=== PATIENT | male | born 1970 | race Caucasian/White ===

== ENCOUNTER → 2024-02-15 09:05 | Outpatient (REF) | payer BC, SELFPAY | LOC: RAD 09:05 | PROVIDERS: ATTENDING PHYSICIAN Family Medicine | DX: E78.2 Mixed hyperlipidemia (principal) | CPT/HCPCS: 75571 ==

== ENCOUNTER 2024-08-07 17:30 | Emergency (ER) | payer BC, SELFPAY ==
[2024-08-07 17:33] VITALS: BP 138/101
--- NOTE | 2024-08-07 17:33 | ED.GENMED ---
ED Provider Triage
-
Patient seen by provider in Triage?: Seen in Triage
Attestation: A medical screening examination has been initiated by a qualified medical provider. Based on the assessment performed at this time, it has been determined that an emergent medical condition may exist and the patient has been informed
that further medical evaluation and possible additional diagnostic testing may be needed.
HPI: 54-year-old male states a tree had fallen on the fence, he was cutting it up half hour ago when a piece of the branch flew up and struck him in the right side of his face. It struck him hard enough that he fell backwards onto the ground was
stunned but no significant loss of consciousness. He drove to his neighbors who brought him in here.
Right now feels nauseous and dizzy. Has not vomited.Denies neck pain, back pain.
Small laceration inner upper right lip, abrasion right upper lip/cheek
GENERAL: Alert , in no apparent distress
EYE: No visual abnormalities.
NECK: Trachea midline
ENT: No visible abnormalities.
LUNGS: No acute respiratory distress
NEUROLOGICAL: Alert and oriented
SKIN: Skin intact. No visible changes.
MUSCULOSKELETAL: Moving extremities normally
PSYCH: Normal and appropriate interaction.
This is a medical evaluation conducted in person to initiate diagnostic evaluation and provide initial therapeutics. Please see further documentation by the treating clinician.
History of Present Illness
General
Chief Complaint: Head Injury
Source: patient
Exam Limitations: none
Nursing documentation reviewed up to this point in time: agreed with
History of Present Illness
History of Present Illness:
54-year-old male hx Triumec for HIV (nondetectable) and HLD states a tree had fallen on the fence, he was cutting it up half hour ago when a piece of the branch flew up and struck him in the right side of his face. It struck him hard enough that
he fell backwards onto the ground was stunned but no significant loss of consciousness. He drove to his neighbors who brought him in here.
Right now feels nauseous and dizzy. Has not vomited.Denies neck pain, back pain.
Small laceration inner upper right lip, abrasion right upper lip/cheek
Past History
Past History
ED Past Medical History: Hypercholesterolemia and Other (HIV +, undetectable HIV viral load since 1999, stable CD4 count)
ED Past Surgical History: Appendectomy and Other (Hernia repair)
Social History
Tobacco: Former smoker (Quit November 2014)
Alcohol: Former
Drug: None and Other (Recovering Drug addiction)
Personal: Partner
Living: with family
Employment: Retired
Family History
Family History: Hypertension; Negative Early CAD, CAD or Sudden
Review of Systems
Review of Systems
Allergies reviewed?: Yes
All Other Systems: ROS reviewed and negative except as documented in HPI and ROS
EENT: Reports other (denies pain or looseness of teeth. Cut inner upper lip)
Respiratory: Denies trouble breathing
Cardiac: Denies chest pain or syncope
ABD/GI: Denies abdominal pain, nausea or vomiting
Musculoskeletal: Denies neck pain or back pain
Skin: Reports other (scrape face, cut inner upper right lip)
Neurological: Reports no symptoms
Phy Exam
Physical Exam
Physical Exam:
GENERAL: No acute distress. A&Ox3.
CONSTITUTIONAL: Afebrile.
EYES: PERRL, conjunctivae normal
Neck: Supple
ENMT: moist mucus membranes, Pharynx nl, 5 mm laceration right inner upper lip, no active bleeding, teeth intact, full ROM of jaw
RESPIRATORY: Regular respirations, nonlabored, lungs clear.
CARDIOVASCULAR: Regular rate and rhythm, no murmurs, no rubs.
GI: Soft, nontender
MUSCULOSKELETAL: No spinal bony tenderness. Moves with ease. Well perfused.
SKIN: Warm, dry, pink, superficial clean abrasion right upper lip and right cheek.
PSYCH: Normal mood and affect. Well kept, interactive and appropriate
NEUROLOGIC: Awake, alert and oriented. No focal neurological deficits
Course
Orders/Labs/Results
Orders:
Orders
08/07/24 17:37
Tetanus/Diphth/Acelpertussis [Adacel] 0.5 ml IM .ONCE ONE
Vital Signs
Initial and Last Documented VS:
Initial Vital Signs
Temp Pulse Resp BP Pulse Ox
98.5 F 90 18 138/101 99
08/07/24 17:33 08/07/24 17:33 08/07/24 17:33 08/07/24 17:33 08/07/24 17:33
Last Documented Vital Signs
Temp Pulse Resp BP Pulse Ox
98.5 F 90 18 174/87 99
08/07/24 17:33 08/07/24 17:33 08/07/24 17:33 08/07/24 17:58 08/07/24 17:33
MDM/Problems Addressed
MDM/Problems Addressed:
54-year-old male hx Triumec for HIV (nondetectable) and HLD states a tree had fallen on the fence, he was cutting it up half hour ago when a piece of the branch flew up and struck him in the right side of his face. It struck him hard enough that
he fell backwards onto the ground was stunned but no significant loss of consciousness. He drove to his neighbors who brought him in here.
Right now feels nauseous and dizzy. Has not vomited.Denies neck pain, back pain.
Small laceration inner upper right lip, abrasion right upper lip/cheek
Pt is requesting to leave.
No injury to teeth.
No LOC, normal neuro exam.
No indication for imaging.
Tdap updated.
Inner upper right lip laceration does not need closure, should heal well by secondary intention
Stable for discharge
*Critical Care Note
Total Time (30-74mins, 75-104mins- exclusive of procedures): Not Applicable
ED Attending Note
-
Portions of this chart may have been created with voice recognition software.� Occasional wrong word or��sound alike� substitutions may have occurred due to the inherent limitations of voice recognition software.
Discharge Plan
Departure
Patient Disposition: Home (Routine Discharge)
Date of Disposition: 08/07/24
Time of Disposition: 17:48
Patient with high blood pressure during this ER visit?: No
Condition: Good
Discharge Problem:
Contusion of face, Laceration of buccal mucosa, Abrasion of face
Instructions: Head Injury in Adults (DC), Contusion (DC), Taking care of cuts, scrapes, and puncture wounds
Prescriptions:
No Action
nevirapine 200 MG tablet
200 mg PO DAILY
abacavir-lamivudine [Epzicom] 1 TAB tablet
1 tab PO DAILY
atorvastatin 10 MG tablet
10 mg PO DAILY
multivitamin [Multi-Day] 1 EACH tablet
1 ea PO DAILY
nevirapine 200 MG tablet
200 mg PO DAILY
ascorbic acid (vitamin C) [Vitamin C] 500 MG tablet
1,000 mg PO DAILY
L.acidoph,paracasei,B.animalis 1 EACH capsule
1 ea PO DAILY
cephalexin 500 MG capsule
500 mg PO QID Qty: 28 0RF
Referrals:
Your, doctor [Other] - As needed
Activity Restrictions/Additional Instructions:
As we discussed, for the wound inside your mouth, rinse and spit with warm salt water after eating anything for the next 3 days. Seek medical care immediately for signs of infection which may include increasing swelling, redness, pain, pus
drainage, fever.
Tylenol or ibuprofen as needed for pain.
Return here immediately for vomiting more than once 1 hour, confusion or headache gets worse and worse despite Tylenol or ibuprofen.
Interventions
Interventions:
*Risk Screen - Suicide Last Done: 08/07/24 17:33
*General Assessment Last Done: 08/07/24 17:33
*Neglect/Abuse Screening Last Done: 08/07/24 17:33
*Nursing Disposition Last Done: 08/07/24 17:58
ED- Neurological Assessment Last Done: 08/07/24 17:58
Discharge Date and Time
Discharge Date/Time: 08/07/24 18:01
Print Language: FRISIAN
[2024-08-07] MEDS: ADACEL 0.5 ML IM (17:46)
[2024-08-07 17:58] VITALS: BP 174/87
== END 2024-08-07 18:01 | disposition home or self-care (01) ==
LOC: EMR 17:30
PROVIDERS: EMERGENCY PHYSICIAN Emergency Medicine; FAMILY PHYSICIAN Family Medicine
DX: S00.81XA Abrasion of other part of head, initial encounter (principal); S01.511A Laceration without foreign body of lip, initial encounter; W22.8XXA Striking against or struck by other objects, initial encounter; Z23 Encounter for immunization; R42 Dizziness and giddiness; R11.0 Nausea; Z21 Asymptomatic human immunodeficiency virus [HIV] infection status; E78.00 Pure hypercholesterolemia, unspecified; Z82.49 Family history of ischemic heart disease and other diseases of the circulatory system; Z87.891 Personal history of nicotine dependence; Z90.49 Acquired absence of other specified parts of digestive tract
CPT/HCPCS: 99282; 90471; 90715

== ENCOUNTER → 2024-10-26 06:46 | Outpatient (REF) | payer BC, SELFPAY | LOC: RAD 06:46 | PROVIDERS: ATTENDING PHYSICIAN Family Medicine | DX: R93.1 Abnormal findings on diagnostic imaging of heart and coronary circulation (principal); E29.1 Testicular hypofunction; E78.2 Mixed hyperlipidemia | CPT/HCPCS: 93880 ==

== ENCOUNTER → 2024-12-04 08:29 | Outpatient (REF) | payer BC, SELFPAY | LOC: PAVMRI 08:29 | PROVIDERS: ATTENDING PHYSICIAN Family Medicine | DX: E29.1 Testicular hypofunction (principal) | CPT/HCPCS: 70553; A9575 ==